=== PATIENT | female | born 1995 | race Caucasian/White ===

== ENCOUNTER 2017-09-11 09:18 | Emergency (ER) | payer OTHER ==
[2017-09-11 09:27] VITALS: BP 123/62; PULSE 81; TEMP 98.5; BMI 24.7
--- NOTE | 2017-09-11 10:22 | PDOC ---
History of Present Illness - General Chief Complaint: Eye Problem Stated Complaint: EYE PROBLEM Time Seen by Provider: 09/11/17 10:04 History Source: Patient Exam Limitations: No Limitations - History of Present Illness Initial Comments: 09/11/17 10:18 Patient is a 22-year-old female who denies any significant medical history currently on no medication presents today with right periorbital edema. Patient reports that she's been having this intermittently it occurs on either eyes, her fingers or her foot today presents on right eye. Patient reports telling her primary care doctor about this and was told she seen [facility] however they have never referred her to one. Patient presents to the ER today requesting referral. When this usually happens patient takes Benadryl which resolved symptoms. Reports pain to upper eyelid, no visual disturbance, no injury to eye. No redness to conjunctiva. He suddenly has had a cold, tactile fever with nasal congestion otherwise no sinus pressure pain no headache. Past Medical History: Denies. Allergies: No known allergies Medications: None Family History: Non-contributory Social History: Denies smoking, alcohol use, or IVDU Vital signs on arrival are notable for pulse of 96. Review of Systems GENERAL/CONSTITUTIONAL: No fever or chills. No weakness. No weight change. HEAD, EYES, EARS, NOSE AND THROAT: No change in vision. Right periorbital edema , No ear pain or discharge. No sore throat. CARDIOVASCULAR: No chest pain or shortness of breath. RESPIRATORY: No cough, wheezing, or hemoptysis. GASTROINTESTINAL: No nausea, vomiting, diarrhea or constipation. No rectal bleeding. GENITOURINARY: No dysuria, frequency, or change in urination. MUSCULOSKELETAL: No joint or muscle swelling or pain. No neck or back pain. SKIN AND BREASTS: No rash or easy bruising. NEUROLOGIC: No headache, vertigo, loss of consciousness, or loss of sensation. PSYCHIATRIC: No depression or anxiety. ENDOCRINE: No increased thirst. No abnormal weight change. HEMATOLOGIC/LYMPHATIC: No anemia, easy bleeding, or history of blood clots. ALLERGIC/IMMUNOLOGIC: No hives or skin allergy. No latex allergy. Physical Exam: GENERAL: The patient is awake, alert, and fully oriented, in no acute distress. HEAD: Normal with no signs of trauma. EYES: Pupils equal, round and reactive to light, extraocular movements intact, sclera anicteric, conjunctiva clear. No corneal abrasion, right upper and lower eyelid edema. ENT: Ears normal, nares patent, oropharynx clear without exudates. Moist mucous membranes. No uvula deviation NECK: Normal range of motion, supple without lymphadenopathy, JVD, or masses. LUNGS: Breath sounds equal, clear to auscultation bilaterally. No wheezes, and no crackles. HEART: Regular rate and rhythm, normal S1 and S2 without murmur, rub or gallop. ABDOMEN: Soft, nontender, normoactive bowel sounds. No guarding, no rebound. No masses. No bruising or abrasions RECTAL : Guaiac negative, normal rectal tone. MUSCULOSKELETAL: Normal range of motion, no edema. No clubbing or cyanosis. No cords, erythema, or tenderness. No CVA Tenderness with fist. NEUROLOGICAL: Cranial nerves II through XII grossly intact. Normal speech, normal gait. PSYCH: Normal mood, normal affect. SKIN: Warm, Dry, normal turgor, no rashes or lesions noted. Right eyelid edema without evidence of cellulitis Past History - Past Medical History Allergies/Adverse Reactions: Allergies Allergy/AdvReac Type Severity Reaction Status Date / Time No Known Allergies Allergy Verified 09/11/17 09:27 Home Medications: Ambulatory Orders NK [No Known Home Medication] 09/11/17 COPD: No Other medical history: ADD - Suicide/Smoking/Psychosocial Hx Smoking History: Never smoked Information on smoking cessation initiated: No Hx Alcohol Use: No Drug/Substance Use Hx: No Substance Use Type: None *Physical Exam - Vital Signs Last Vital Signs Temp Pulse Resp BP Pulse Ox 98.5 F 81 18 123/62 100 09/11/17 09:24 09/11/17 09:24 09/11/17 09:24 09/11/17 09:24 09/11/17 09:24 Medical Decision Making - Medical Decision Making 09/11/17 10:20 A/P: Patient here with upper and lower right eyelid edema, no injury to eye. Patient reports that she gets this intermittently I have called patient's primary care doctor Dr. Rodrigues who is requesting for patient not to receive any treatment in ER and to come into the office today at 12:30. She wants to be able to see patients symptoms and to refer. Patient is in no acute distress, I will discharge patient now to follow-up immediately at primary care doctor. *DC/Admit/Observation/Transfer Diagnosis at time of Disposition: Edema of eyelid Qualifiers: Laterality: right Qualified Code(s): H02.843 - Edema of right eye, unspecified eyelid - Discharge Dispostion Disposition: HOME Condition at time of disposition: Stable Admit: No - Referrals Referrals: ON STAFF,NOT [Primary Care Provider] - (Dr. Rodrigues today at 12:30) Carter Cobb MD [Staff Physician] - - Patient Instructions Additional Instructions: Please go to your primary care doctor today at 12:30. She is advised me that she wants to see her symptoms. - Post Discharge Activity Forms/Work/School Notes: Back to School
== END 2017-09-11 10:27 | disposition home or self-care (01) ==
LOC: JERFT 09:18
DX: H02.843 Edema of right eye, unspecified eyelid (principal)
CPT/HCPCS: 99281-25